=== PATIENT | female | born 1995 | race Caucasian/White ===

== ENCOUNTER 2018-09-20 11:00 | Emergency (ER) | payer MEDICAID ==
[~2018-09-20] VITALS: Ht 154.9 cm; Wt 68.9 kg
[2018-09-20 11:11] VITALS: Ht 154.9 cm; Wt 68.9 kg
[2018-09-20 14:17] VITALS: BP 116/73
[2018-09-22 11:27] LABS: RAPID PLASMA REAGIN Non Reactive (Nonreactive)
== END 2018-09-20 14:17 | disposition home or self-care (01) ==
LOC: ED 11:00
PROVIDERS: Emergency Medicine
DX: T74.21XA Adult sexual abuse, confirmed, initial encounter (principal)
CPT/HCPCS: 36415; 87491; 87591; J0696

== ENCOUNTER 2019-07-26 18:38 | Emergency (ER) | payer MEDICAID ==
[~2019-07-26] VITALS: Ht 162.6 cm; Wt 65.3 kg
[2019-07-26 19:07] VITALS: Ht 162.6 cm; Wt 65.3 kg
[2019-07-26 20:19] VITALS: BP 109/61
== END 2019-07-26 20:19 | disposition home or self-care (01) ==
LOC: ED 18:38
DX: S83.91XA Sprain of unspecified site of right knee, initial encounter (principal); W18.2XXA Fall in (into) shower or empty bathtub, initial encounter; Y93.E1 Activity, personal bathing and showering; Y92.091 Bathroom in other non-institutional residence as the place of occurrence of the external cause; Y99.8 Other external cause status

== ENCOUNTER 2019-11-02 16:00 | Emergency (ER) | payer MEDICAID ==
[~2019-11-02] VITALS: Ht 162.6 cm; Wt 62.1 kg
[2019-11-02 16:05] VITALS: Ht 162.6 cm; Wt 62.1 kg
[2019-11-02 17:00] VITALS: BP 123/72
== END 2019-11-02 17:00 | disposition home or self-care (01) ==
LOC: ED 16:00
DX: S10.96XA Insect bite of unspecified part of neck, initial encounter (principal); Z91.030 Bee allergy status; W57.XXXA Bitten or stung by nonvenomous insect and other nonvenomous arthropods, initial encounter; Y93.89 Activity, other specified; Y92.89 Other specified places as the place of occurrence of the external cause; Y99.8 Other external cause status
CPT/HCPCS: J7512; Q0163

== ENCOUNTER 2020-02-25 23:31 | Emergency (ER) | payer OTHER ==
[~2020-02-25] VITALS: Ht 154.9 cm; Wt 68.0 kg
[2020-02-25 23:33] VITALS: Ht 154.9 cm; Wt 68.0 kg
[2020-02-26 00:27] LABS: BASOPHIL % 0.4 % (0-2); PLATELET COUNT 322 x10^3mcL (130-400); RED CELL DISTRIBUTION WIDTH 12.5 % (11.5-14.5)
[2020-02-26 02:02] VITALS: BP 97/54
== END 2020-02-26 02:02 | disposition home or self-care (01) ==
LOC: ED 23:31
PROVIDERS: Emergency Medicine
DX: R10.31 Right lower quadrant pain (principal); Z91.030 Bee allergy status
CPT/HCPCS: 36415; Q0092

== ENCOUNTER 2020-06-17 15:20 | Emergency (ER) | payer OTHER, SELFPAY ==
[~2020-06-17] VITALS: Ht 154.9 cm; Wt 72.6 kg
[2020-06-17 15:22] VITALS: Ht 154.9 cm; Wt 72.6 kg
[2020-06-17 15:48] VITALS: BP 121/68
== END 2020-06-17 15:48 | disposition home or self-care (01) ==
LOC: ED 15:20
DX: U07.1 COVID-19 (principal); Z91.030 Bee allergy status
CPT/HCPCS: U0003